=== PATIENT | female | born 1975 | race Caucasian/White ===

== ENCOUNTER 2023-01-27 14:07 | Emergency (ER) | payer MEDICAID ==
[~2023-01-27] VITALS: Ht 167.6 cm; Wt 56.7 kg
--- NOTE | 2023-01-27 14:30 | NUR ---
MD seen pt at bedside.
[2023-01-27] MEDS ORDERED: LORAZEPAM 1 MG TABLET ONE (14:40)
--- NOTE | 2023-01-27 14:45 | NUR ---
Pt recieved medications for anxiety
[2023-01-27] MEDS ORDERED: LORAZEPAM 1 MG TABLET PO ONE (15:00)
--- NOTE | 2023-01-27 15:20 | NUR ---
pt in bed comfortable.
--- NOTE | 2023-01-27 15:55 | NUR ---
Patient discharged to home in stable condition. Written and verbal after care instructions given. Patient verbalizes understanding of instruction.
[2023-01-27 15:56] VITALS: BP 118/69
== END 2023-01-27 15:56 | disposition home or self-care (01) ==
LOC: ER 14:09
DX: F41.9 Anxiety disorder, unspecified (principal); Z60.2 Problems related to living alone